=== PATIENT | female | born 1990 | race Caucasian/White ===

== ENCOUNTER → 2024-09-10 11:25 | Outpatient (REF) | payer OTHER, SELFPAY | LOC: PAVMRI 11:25 | PROVIDERS: ATTENDING PHYSICIAN Student in an Organized Health Care Education/Training Program; FAMILY PHYSICIAN Student in an Organized Health Care Education/Training Program | DX: R42 Dizziness and giddiness (principal); R53.83 Other fatigue | CPT/HCPCS: 70551 ==